=== PATIENT | female | born 1955 | race Hispanic/Latino ===

== ENCOUNTER 2021-05-01 08:36 | Day surgery (SDC) | payer MEDICARE, OTHER ==
[2021-04-26 14:14] LABS: Mean Corpuscular HGB CONC 32.4 g/dL (32.0-36.0); Mean Corpuscular Hemoglobin 30.8 pg (27.0-33.0); Mean Corpuscular Volume 95.2 fl (81.6-98.3); Mean Platelet Volume 10.4 fl (7.4-10.4); Platelet Count 319 10x3/uL (150-450); RBC Distribution Width 13.7 % (11.5-14.5); Red Blood Cell (RBC) Count 4.54 10x6/uL (3.90-5.03); White Blood Cell (WBC) Count 7.1 10x3/uL (3.5-10.5)
[2021-04-27 08:16] LABS: SARS-CoV-2 PCR by NAA Not Detected (NotDetected)
[2021-04-30 10:46] VITALS: BMI 30.4
[2021-05-01] MEDS ORDERED: Gabapentin 300 MG CAP ONE (08:43)
[2021-05-01] MEDS ORDERED: Lidocaine 1% MPF 2 ML VIAL ONE (08:43)
[2021-05-01] MEDS ORDERED: CeleCOXIB 100 MG CAP ONE (08:43)
[2021-05-01] MEDS ORDERED: Famotidine/PF 20 mg/2ml Vial ONE (08:43)
[2021-05-01] MEDS ORDERED: PROPOFOL 20 ML ONE (09:46)
[2021-05-01] MEDS ORDERED: Fentanyl 250 MCG/5 ML VIAL ONE (09:47)
[2021-05-01] MEDS ORDERED: Ondansetron PF 4 MG/2 ML Vial ONE (09:47)
[2021-05-01] MEDS ORDERED: Glycopyrrolate 0.2 MG/ML 5 ML SYRINGE ONE (09:47)
[2021-05-01] MEDS ORDERED: Lidocaine 1% PF 5 ML VIAL ONE (09:48)
[2021-05-01] MEDS ORDERED: Dexamethasone 4 mg/ml Vial ONE (09:48)
[2021-05-01] MEDS ORDERED: PHENYLEPHRINE-NS 100 MCG/ML 10 ML SYRINGE ONE (09:48)
[2021-05-01] MEDS ORDERED: Ketorolac Tromethamine 30 MG/ML VIAL ONE (09:48)
[2021-05-01] MEDS ORDERED: Bupivacaine PF 0.5% 30 ML VIAL ONE (10:00)
[2021-05-01] MEDS ORDERED: EPINEPHrine 1 MG/ML AMP ONE (10:01)
[2021-05-01] MEDS ORDERED: Hydrocortisone Sod Succ/PF 100 mg/2 ml Vial ONE (10:37)
[2021-05-01] MEDS ORDERED: Fentanyl 100 MCG/2 ML VIAL ONE (12:41)
[2021-05-01] MEDS ORDERED: Morphine 4 MG/ML VIAL SLOW IVP PRN (15:10)
[2021-05-01] MEDS ORDERED: diphenhydrAMINE 25 MG CAP PO PRN (15:10)
[2021-05-01] MEDS ORDERED: Ondansetron PF 4 MG/2 ML Vial IVP PRN (15:10)
[2021-05-01] MEDS ORDERED: traMADol HCl 50 MG TAB PO PRN (15:10)
[2021-05-01] MEDS ORDERED: Acetaminophen 325 MG TAB PO PRN (15:10)
[2021-05-01] MEDS ORDERED: Simethicone Chewable 80 MG TAB PO PRN (15:10)
[2021-05-01] MEDS ORDERED: Promethazine HCl 25 MG/ML VIAL IM PRN (15:10)
[2021-05-01] MEDS: Sodium Chloride 0.9% 1,000 ML IV SCH (16:46)
[2021-05-02] MEDS: Sodium Chloride 0.9% 1,000 ML IV SCH ×2 (00:55→07:54)
[2021-05-02 06:56] LABS: Hemoglobin 10.8 g/dL (12.0-15.5); Mean Corpuscular Hemoglobin 30.9 pg (27.0-33.0); Mean Corpuscular Volume 96.8 fl (81.6-98.3); Mean Platelet Volume 10.1 fl (7.4-10.4); Platelet Count 257 10x3/uL (150-450); RBC Distribution Width 13.8 % (11.5-14.5); Red Blood Cell (RBC) Count 3.49 10x6/uL (3.90-5.03); White Blood Cell (WBC) Count 8.4 10x3/uL (3.5-10.5)
[2021-05-02 07:45] VITALS: BP 110/57; TEMP 97.6
== END 2021-05-02 11:00 | disposition home or self-care (01) ==
LOC: CSHSDC 08:36 → CSHPED 14:15 → UNDOADMIN 14:15 → UNDODISIN 05-02 11:00 → CSHSDC 05-02 11:00
PROVIDERS: ATTEND Obstetrics & Gynecology
PROC: 0UT94ZZ Resection of Uterus, Percutaneous Endoscopic Approach (ICD-10-PCS; principal; 2021-05-01)
PROC: 0UT04ZZ Resection of Right Ovary, Percutaneous Endoscopic Approach (ICD-10-PCS; 2021-05-01)
PROC: 0UT74ZZ Resection of Bilateral Fallopian Tubes, Percutaneous Endoscopic Approach (ICD-10-PCS; 2021-05-01)
DX: D25.2 Subserosal leiomyoma of uterus (principal); N73.6 Female pelvic peritoneal adhesions (postinfective); N83.311 Acquired atrophy of right ovary; N83.291 Other ovarian cyst, right side; M32.9 Systemic lupus erythematosus, unspecified; M06.9 Rheumatoid arthritis, unspecified; Z79.899 Other long term (current) drug therapy; Z20.822 Contact with and (suspected) exposure to COVID-19
CPT/HCPCS: 58571; 85027; 86850; 86900; 86901; U0003; U0005; 36415; 88307; J0171; J0690; J1100; J1720; J1885; J2405; J2704; J3010; S0020; S0028

== ENCOUNTER 2021-08-29 10:07 | Outpatient (CLI) | payer MEDICARE, OTHER ==
[2021-08-29 23:28] LABS: SARS-CoV-2 PCR by NAA Not Detected (NotDetected)
== END 2021-08-29 10:08 | disposition home or self-care (01) ==
LOC: CSHLAB 10:07
PROVIDERS: ATTEND Internal Medicine Gastroenterology
DX: Z20.822 Contact with and (suspected) exposure to COVID-19 (principal)
CPT/HCPCS: U0003; U0005

== ENCOUNTER 2021-09-03 06:11 | Day surgery (SDC) | payer MEDICARE, OTHER ==
[2021-08-30 14:23] VITALS: BMI 30.4
[2021-09-03] MEDS ORDERED: Lidocaine 1% MPF 2 ML VIAL ONE (06:31)
[2021-09-03] MEDS ORDERED: Lidocaine 1% PF 5 ML VIAL ONE (08:05)
[2021-09-03] MEDS ORDERED: PROPOFOL 40 ML ONE (08:05)
[2021-09-03] MEDS ORDERED: PHENYLEPHRINE-NS 100 MCG/ML 10 ML SYRINGE ONE (08:10)
[2021-09-03] MEDS ORDERED: Glycopyrrolate 0.2 MG/ML 5 ML SYRINGE ONE (08:23)
[2021-09-03] MEDS ORDERED: PROPOFOL 20 ML ONE (08:24)
== END 2021-09-03 09:07 | disposition home or self-care (01) ==
LOC: CSHSDC 06:11
PROVIDERS: ATTEND Internal Medicine Gastroenterology
PROC: 0DB68ZZ Excision of Stomach, Via Natural or Artificial Opening Endoscopic (ICD-10-PCS; principal; 2021-09-03)
PROC: 0DBN8ZZ Excision of Sigmoid Colon, Via Natural or Artificial Opening Endoscopic (ICD-10-PCS; 2021-09-03)
DX: K29.50 Unspecified chronic gastritis without bleeding (principal); K21.00 Gastro-esophageal reflux disease with esophagitis, without bleeding; K57.30 Diverticulosis of large intestine without perforation or abscess without bleeding; K64.9 Unspecified hemorrhoids; Z86.010 Personal history of colon polyps; M06.9 Rheumatoid arthritis, unspecified; R19.4 Change in bowel habit
CPT/HCPCS: 88305; 88312; J2704